=== PATIENT | male | born 2000 | race Two or more races ===

== ENCOUNTER 2024-04-09 01:18 | Emergency (ER) | payer MEDICAID ==
[~2024-04-09] VITALS: Ht 172.7 cm; Wt 90.9 kg
[2024-04-09 01:46] VITALS: BP 141/79; PULSE 88; RESP 17; TEMP 98.4
== END 2024-04-09 03:26 | disposition home or self-care (01) ==
LOC: EMS 01:22
DX: S93.402A Sprain of unspecified ligament of left ankle, initial encounter (principal); X58.XXXA Exposure to other specified factors, initial encounter; Y93.66 Activity, soccer; Y92.89 Other specified places as the place of occurrence of the external cause; Y99.8 Other external cause status
CPT/HCPCS: 99284